=== PATIENT | male | born 1990 | race Caucasian/White ===

== ENCOUNTER 2022-01-20 14:26 | Emergency (ER) | payer OTHER ==
[2022-01-20 14:35] VITALS: BP 168/85
--- NOTE | 2022-01-20 14:50 | ED Physician Documentation ---
PD HPI GI BLEED - Stated complaint Stated Complaint: MALE GI - Chief complaint Chief Complaint: Abd Pain - History obtained from History obtained from: Patient - Additional information Additional information: On and off for a long time he has had rectal pain. He has had it now constantly for a month and slowly worsening. It does get worse when he has a bowel movement but his bowel movements have been otherwise normal. He has longstanding mild hematochezia. He is never been worked up for this. Of note he has a strong family history of Crohn's disease with multiple family members having it. Review of Systems Constitutional: reports: Reviewed and negative Throat: reports: Reviewed and negative Cardiac: reports: Reviewed and negative Respiratory: reports: Reviewed and negative PD PAST MEDICAL HISTORY - Past Medical History Past Medical History: No Cardiovascular: None Respiratory: None, Tuberculosis Neuro: None Endocrine/Autoimmune: None GI: None : None HEENT: None Psych: None Musculoskeletal: None - Past Surgical History Past Surgical History: Yes HEENT: Other - Present Medications Home Medications: Ambulatory Orders Medication Instructions Recorded Confirmed Docusate Sodium 100Mg Capsule 100 mg PO BID #120 cap 01/20/22 [Colace 100Mg Capsule] Nitroglycerin [Rectiv] 1 applic RC BID 50 Days gm 01/20/22 - Allergies Allergies/Adverse Reactions: Allergies Allergy/AdvReac Type Severity Reaction Status Date / Time Penicillins Allergy Rash Verified 01/20/22 14:35 - Social History Does the pt smoke?: No Smoking Status: Never smoker Does the pt drink ETOH?: Yes Does the pt have substance abuse?: No - Immunizations Immunizations are current?: Yes PD ED PE NORMAL - Vitals Vital signs reviewed: Yes - General General: Alert and oriented X 3, No acute distress - Abdomen Abdomen: Normal bowel sounds, Soft, Non tender - Rectal Rectal: Other (There is a posterior rectal fissure with tenderness. No abscess or swelling. No hemorrhoids.) - Neuro Neuro: Alert and oriented X 3, Normal speech - Psych Psych: Normal mood, Normal affect Results - Vitals Vitals: Vital Signs - 24 hr 01/20/22 14:32 Temperature 36.2 C L Heart Rate 62 Respiratory 16 Rate Blood Pressure 168/85 H O2 Saturation 97 Oxygen O2 Source Room air PD MEDICAL DECISION MAKING - ED course ED course: 31-year-old gentleman with rectal fissure we will treat with topical nitroglycerin, Colace and sitz bath's. Given the diagnosis and strong family history of Crohn's disease advised follow-up for colonoscopy. Departure - Departure Disposition: 01 Home, Self Care Clinical Impression: Anal fissure Condition: Good Record reviewed to determine appropriate education?: Yes Instructions: Sitz Bath, ED Fissure Anal Ch Prescriptions: Docusate Sodium 100Mg Capsule [Colace 100Mg Capsule] 100 mg PO BID #120 cap Nitroglycerin [Rectiv] 1 applic RC BID 50 Days gm Comments: It looks like you have a posterior rectal fissure. The nitroglycerin paste and stool softener will help, also do sitz bath's as discussed twice a day. 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 Return for new or worsening symptoms. Discharge Date/Time: 01/20/22 15:00
== END 2022-01-20 15:00 | disposition home or self-care (01) ==
LOC: ED 14:26
DX: K60.2 Anal fissure, unspecified (principal)
CPT/HCPCS: 99282